=== PATIENT | male | born 1965 | race Caucasian/White ===

== ENCOUNTER → 2018-03-06 | Outpatient (CLI) | payer OTHER ==
[~2018-03-06] MED LIST: AMLO10TA2 PO; CIPR500T87 PO; CRAN500C PO; FINA5TAB4 PO; HYDR25TA6 PO; L.AC1CAP6 PO; LEVO500T47 PO; LISI-170 PO; LISI1TAB5 PO; MULT-658 PO; NAPR-685 PO; PHEN-583 PO; ST.150CA PO; TADA5TAB2 PO; TAMS0.4C2 PO; [UNRECOGNIZED DRUG - OTHER] PO
== END ==
LOC: CFH 12:55
PROVIDERS: ATTEND Family Medicine
DX: R42 Dizziness and giddiness (principal)
CPT/HCPCS: 70450